=== PATIENT | female | born 2000 | race Caucasian/White ===

== ENCOUNTER → 2018-10-01 | Outpatient (CLI) | payer OTHER | LOC: COL.RAD 09:55 | DX: Z02.71 Encounter for disability determination (principal); Q05.7 Lumbar spina bifida without hydrocephalus ==

== ENCOUNTER 2021-08-28 10:35 | Emergency (ER) | payer SELFPAY ==
[~2021-08-28] VITALS: Ht 160 cm; Wt 72.7 kg
[2021-08-28 10:45] VITALS: BP 129/64; TEMP 98.4
[2021-08-28 11:54] VITALS: PULSE 108
== END 2021-08-28 11:55 | disposition home or self-care (01) ==
LOC: COL.ER 10:35
DX: J06.9 Acute upper respiratory infection, unspecified (principal); Z20.822 Contact with and (suspected) exposure to COVID-19; Z28.310 Unvaccinated for COVID-19

== ENCOUNTER 2021-10-24 14:30 | Emergency (ER) | payer SELFPAY ==
[~2021-10-24] VITALS: Ht 160 cm; Wt 72.7 kg
[2021-10-24 15:00] LABS: COLLECTION METHOD CLEAN CATCH
[2021-10-24 15:09] LABS: URINE BACTERIA None Seen /hpf (NONE SEEN); URINE RBC 20-50 /hpf (0-2)
[2021-10-24 15:10] LABS: URINE APPEARANCE Turbid (CLEAR/HAZY); URINE COLOR Yellow (YELLOW); URINE PROTEIN(semi-quant) 2+ (NEGATIVE)
[2021-10-24 15:11] LABS: URINE BLOOD 2+ (NEGATIVE); URINE GLUCOSE Negative (NEGATIVE); URINE KETONE Negative (NEGATIVE); URINE NITRATE Negative (NEGATIVE); URINE UROBILINOGEN 0.2 E.U/dL (0.2-1.0)
[2021-10-24] MEDS ORDERED: CEFTIN500 MG PO (15:33)
[2021-10-24 15:51] VITALS: BP 113/62; PULSE 104; TEMP 99.4
== END 2021-10-24 15:52 | disposition home or self-care (01) ==
LOC: COL.ER 14:30
PROVIDERS: Nurse Practitioner
DX: N39.0 Urinary tract infection, site not specified (principal); Z32.02 Encounter for pregnancy test, result negative; Z28.310 Unvaccinated for COVID-19